=== PATIENT | female | born 1950 | race African-American/Black ===

== ENCOUNTER 2018-01-17 09:17 | Outpatient (CLI) | payer MEDICARE, BC | END 2018-01-17 09:18 | disposition home or self-care (01) | LOC: BICMAMMO 09:17 | PROVIDERS: ATTEND Family Medicine | DX: Z12.31 Encounter for screening mammogram for malignant neoplasm of breast (principal) | CPT/HCPCS: 77063; 77067 ==

== ENCOUNTER 2019-01-20 07:48 | Outpatient (CLI) | payer MEDICARE ==
--- NOTE | 2019-01-21 15:32 | MMO ---
Bilateral MAMMO Bilat Screen [facility]. CLINICAL HISTORY: Patient is 68 years old and is seen for screening. The patient has no family history of breast cancer. The patient has no personal history of cancer. The patient has a history of right Excisional Biopsy at age 26 - benign. VIEWS: The views performed were: bilateral craniocaudal with tomosynthesis and bilateral mediolateral oblique with tomosynthesis. FILMS COMPARED: The present examination has been compared to prior imaging studies performed at [facility] on 11/02/2015, 01/14/2017 and 01/17/2018, and at [facility] [place] on 05/20/2014. MAMMOGRAM FINDINGS: There are scattered fibroglandular densities. Benign calcifications are noted bilaterally. No suspicious calcifications or masses are seen. IMPRESSION: FINDINGS IN BOTH BREASTS ARE BENIGN. A ROUTINE FOLLOW-UP MAMMOGRAM IN 1 YEAR IS RECOMMENDED. THE RESULTS OF THIS EXAM WERE SENT TO THE PATIENT. ACR BI-RADS Category 2 - Benign finding MAMMOGRAPHY NOTE: 1. A negative mammogram report should not delay a biopsy if a dominant of clinically suspicious mass is present. 2. Approximately 10% to 15% of breast cancers are not detected by mammography. 3. Adenosis and dense breasts may obscure an underlying neoplasm.
== END 2019-01-20 07:49 | disposition home or self-care (01) ==
LOC: BICMAMMO 07:48
PROVIDERS: ATTEND Family Medicine
DX: Z12.31 Encounter for screening mammogram for malignant neoplasm of breast (principal)
CPT/HCPCS: 77063; 77067

== ENCOUNTER 2021-02-16 09:44 | Outpatient (CLI) | payer MEDICARE | END 2021-02-16 09:45 | disposition home or self-care (01) | LOC: BICMAMMO 09:44 | PROVIDERS: ATTEND Family Medicine | DX: N64.4 Mastodynia (principal) | CPT/HCPCS: 76642; 77065; G0279 ==

== ENCOUNTER 2022-05-24 08:59 | Outpatient (CLI) | payer MEDICARE | END 2022-05-24 09:00 | disposition home or self-care (01) | LOC: BICMAMMO 08:59 | PROVIDERS: ATTEND Family Medicine | DX: Z12.31 Encounter for screening mammogram for malignant neoplasm of breast (principal); Z91.89 Other specified personal risk factors, not elsewhere classified | CPT/HCPCS: 77063; 77067 ==

== ENCOUNTER 2023-09-05 08:42 | Outpatient (CLI) | payer MEDICARE | END 2023-09-05 08:43 | disposition home or self-care (01) | LOC: BICMAMMO 08:42 | PROVIDERS: ATTEND Family Medicine | DX: Z12.31 Encounter for screening mammogram for malignant neoplasm of breast (principal); Z91.89 Other specified personal risk factors, not elsewhere classified | CPT/HCPCS: 77063; 77067 ==